=== PATIENT | female | born 1970 ===

== ENCOUNTER 2024-07-06 13:30 | Emergency (ER) | payer MEDICARE, MEDICAID ==
[~2024-07-06] VITALS: Ht 167.6 cm; Wt 66.0 kg
[2024-07-06 19:02] VITALS: BP 116/84; PULSE 82; RESP 16; TEMP 98.4; O2SAT 98
== END 2024-07-06 19:45 | disposition home or self-care (01) ==
LOC: EMS 13:32
DX: S09.90XA Unspecified injury of head, initial encounter (principal); M25.531 Pain in right wrist; E78.00 Pure hypercholesterolemia, unspecified; F42.9 Obsessive-compulsive disorder, unspecified; F17.210 Nicotine dependence, cigarettes, uncomplicated; Z88.5 Allergy status to narcotic agent; W01.0XXA Fall on same level from slipping, tripping and stumbling without subsequent striking against object, initial encounter; Y93.89 Activity, other specified; Y92.89 Other specified places as the place of occurrence of the external cause; Y99.8 Other external cause status
CPT/HCPCS: 70450; 72125; 99284